=== PATIENT | female | born 1980 | race Two or more races ===

== ENCOUNTER 2018-01-25 23:56 | Emergency (ER) | payer OTHER ==
[~2018-01-25] VITALS: Ht 157.5 cm; Wt 56.1 kg
--- NOTE | 2018-01-26 00:14 | PHYS DOC ---
Adult General Chief Complaint Chief Complaint: VAGINAL BLEEDING HPI HPI Patient is a 37 year old F who presents with vaginal bleeding for the past day. Patient is . Patient states that the bleeding has been spotting all day. Patient has had care with the esl instructional assistant and had an ultrasound about a month ago that showed a positive IUP. Patient denies any abdominal cramping. Patient denies any other vaginal discharge. Patient states this pain she's had no complications. Patient has no other complaints. Review of Systems Review of Systems GEN: Denies fevers, chills, sweats HEENT: Denies blurred vision, sore throat CV: Denies chest pain RESP: Denies shortness of air, cough GI: Denies n/v/d : vag bleeding NEURO: Denies confusion, dizziness MSK: Denies weakness, joint pain/swelling All other systems were reviewed and found to be within normal limits, except as documented in this note. Physical Exam Physical Exam GEN.: Mild distress. Alert and oriented. HEENT: Head is normocephalic, atraumatic NECK: Supple. LUNGS: CTAB. HEART: RRR, S1, S2 present. Peripheral pulses intact ABDOMEN: Soft, nontender. Positive bowel sounds. EXTREMITIES: Without any cyanosis. NEUROLOGIC: Normal speech, normal tone PSYCHIATRIC: Normal affect, normal mood. SKIN: No ulcerations Current Patient Data Vital Signs Laboratory Tests Test 01/26/18 00:10 01/26/18 00:22 Urine Collection Type Unknown Urine Color Yellow Urine Clarity Hazy Urine pH 6.5 Urine Specific [place] 1.020 Urine Protein Neg Urine Glucose (UA) Neg mg/dL Urine Ketones (Stick) Neg mg/dL Urine Blood Large Urine Nitrite Neg Urine Bilirubin Neg Urine Urobilinogen Dipstick 0.2 mg/dL Urine Leukocyte Esterase Neg Urine RBC 1-2 /HPF Urine WBC Rare /HPF Urine Squamous Epithelial Cells Mod /LPF Urine Transitional Epithelial Cells Occ /LPF Urine Bacteria Few /HPF Urine Mucus Slight /LPF White Blood Count 10.3 x10^3/uL Red Blood Count 3.25 x10^6/uL Hemoglobin 10.2 g/dL Hematocrit 28.7 % Mean Corpuscular Volume 88 fL Mean Corpuscular Hemoglobin 31 pg Mean Corpuscular Hemoglobin Concent 35 g/dL Red Cell Distribution Width 13.7 % Platelet Count 278 x10^3/uL Neutrophils (%) (Auto) 66 % Lymphocytes (%) (Auto) 27 % Monocytes (%) (Auto) 7 % Eosinophils (%) (Auto) 1 % Basophils (%) (Auto) 0 % Neutrophils # (Auto) 6.8 x10^3uL Lymphocytes # (Auto) 2.7 x10^3/uL Monocytes # (Auto) 0.7 x10^3/uL Eosinophils # (Auto) 0.1 x10^3/uL Basophils # (Auto) 0.0 x10^3/uL Sodium Level 135 mmol/L Potassium Level 3.3 mmol/L Chloride Level 101 mmol/L Carbon Dioxide Level 27 mmol/L Anion Gap 7 Blood Urea Nitrogen 12 mg/dL Creatinine 0.6 mg/dL Estimated GFR (Cockcroft-Gault) 113.1 BUN/Creatinine Ratio 20 Glucose Level 93 mg/dL Calcium Level 8.7 mg/dL Total Bilirubin 0.2 mg/dL Aspartate Amino Transf (AST/SGOT) 14 U/L Alanine Aminotransferase (ALT/SGPT) 15 U/L Alkaline Phosphatase 54 U/L Total Protein 6.8 g/dL Albumin 3.2 g/dL Albumin/Globulin Ratio 0.9 EKG EKG [] Radiology/Procedures Radiology/Procedures US: IMPRESSION: Single viable intrauterine gestation with a mean gestational age estimated at 16 weeks 4 days and estimated date of confinement of 07/09/2018. Low-lying anterior placenta with no previa or abruption evident.[] Course & Med Decision Making Course & Med Decision Making Pertinent Labs and Imaging studies reviewed. (See chart for details) ED course: Patient was seen and examined emergency room basic blood work was ordered along with UA and a transvaginal ultrasound On reevaluation patient was updated on lab results and ultrasound results and plan to discharge home with follow-up with her NURSE SANE. Recommended pelvic rest until she follows up with NURSE SANE. Patient is comfortable with plan. MDM: After reviewing the chart, CC/HPI/PMH, physical exam, [lab results], [ radiological results], I do not believe the patient has emergent obstetrics issue warranting further workup and/or admission at this time. I believe the patient stable for discharge and follow-up with her NURSE SANE in the morning and recommended pelvic rest until she follows up. Patient is comfortable being discharged. Additional verbal discharge instructions were provided to the patient and that if symptoms get worse or any new symptoms arise that are worrisome to the patient she is to return to the emergency room immediately [] Dragon Disclaimer Dragon Disclaimer This electronic medical record was generated, in whole or in part, using a voice recognition dictation system. Departure Departure: Impression: Primary Impression: Vaginal bleeding before 22 weeks gestation Disposition: HOME, SELF-CARE Condition: STABLE Referrals: NIMA SCHAFFER MS CNM (PCP) Patient Instructions: Vaginal Bleeding During , Second Trimester Additional Instructions: Please follow-up with your NURSE SANE in the next one to 2 days and return if symptoms increase. Please practice pelvic rest until the he follow-up with her NURSE SANE. DEMETRICE COLLAZO DO Jan 26, 2018 00:14
[2018-01-26 00:42] LABS: BASO % 0 % (0-3); EOS # 0.1 x10^3/uL (0.0-0.7); EOS % 1 % (0-3); HEMATOCRIT 28.7 % (36.0-47.0); HEMOGLOBIN 10.2 g/dL (12.0-15.5); LYMPH # 2.7 x10^3/uL (1.0-4.8); LYMPH % 27 % (24-48); MEAN CORPUSCULAR HEMOGLOBIN 31 pg (25-35); MEAN CORPUSCULAR HGB CONC 35 g/dL (31-37); MEAN CORPUSCULAR VOLUME 88 fL (79-100); MONO # 0.7 x10^3/uL (0.0-1.1); MONO % 7 % (0-9); NEUT # 6.8 x10^3uL (1.8-7.7); NEUT % 66 % (31-73); PLATELET COUNT 278 x10^3/uL (140-400); RED BLOOD COUNT 3.25 x10^6/uL (3.50-5.40); RED CELL DISTRIBUTION WIDTH 13.7 % (11.5-14.5); WHITE BLOOD COUNT 10.3 x10^3/uL (4.0-11.0)
[2018-01-26 00:52] LABS: ALBUMIN 3.2 g/dL (3.4-5.0); ALBUMIN/GLOBULIN RATIO 0.9 (1.0-1.7); CALCIUM 8.7 mg/dL (8.5-10.1); CREATININE 0.6 mg/dL (0.6-1.0); GFR 113.1; POTASSIUM 3.3 mmol/L (3.5-5.1); TOTAL BILIRUBIN 0.2 mg/dL (0.2-1.0); TOTAL PROTEIN 6.8 g/dL (6.4-8.2)
[2018-01-26 01:05] LABS: BILIRUBIN,URINE NEG (NEG); CLARITY,URINE HAZY; COLOR,URINE YELLOW; GLUCOSE,URINE NEG (NEG)
[2018-01-26 01:06] LABS: BACTERIA,URINE FEW /HPF (0-FEW); NITRITE,URINE NEG (NEG); SQUAMOUS EPITHELIAL CELL,UR MOD /LPF; UROBILINOGEN,URINE 0.2 mg/dL (0.2 mg/dL); WBC,URINE RARE /HPF (0-4)
[2018-01-26 02:05] VITALS: BP 102/60
--- NOTE | 2018-01-26 02:22 | RAD ---
Obstetric ultrasound limited: Reason for examination: with vaginal bleeding. Single viable intrauterine gestation is present with a cardiac rate of 144 bpm. There is a low-lying anterior placenta. No previa or abruption is evident. Cervix length is normal at 4.2 cm and the cervix is closed. There is motion and cardiac activity present. Adequate amniotic fluid appears be present. Biparietal diameter 3.4 cm corresponding to gestational age of 16 weeks 5 days. Head circumference 12.91 cm corresponding to gestational age of 16 weeks 4 days. Abdominal circumference 10.83 cm corresponding to gestational age of 16 weeks 5 days. Femur length 2.1 cm corresponding to gestational age of 16 weeks 1 day. Head circumference to abdominal circumference ratio 1.19. Estimated weight weight 1 57 g. Gestational age estimated at 16 weeks 4 days with estimated date of confinement of 07/09/2018. This corresponds with clinical dates. IMPRESSION: Single viable intrauterine gestation with a mean gestational age estimated at 16 weeks 4 days and estimated date of confinement of 07/09/2018. Low-lying anterior placenta with no previa or abruption evident. Electronically signed by: Tracie Galvez MD (01/26/2018 2:18 AM) [facility]
== END 2018-01-26 02:30 | disposition home or self-care (01) ==
LOC: ER 23:56
DX: O46.92 Antepartum hemorrhage, unspecified, second trimester (principal); Z3A.16 16 weeks gestation of pregnancy
CPT/HCPCS: 36415; 76815; 80053; 81001; 85025; 86901; 99285-25